=== PATIENT | female | born 1950 | race Caucasian/White ===

== ENCOUNTER 2020-12-08 04:04 | Outpatient (CLI) | payer MEDICARE, SELFPAY ==
[2020-12-08 10:32] LABS: Abs Immature Grans 0.01 10^3/uL (0.0-0.06); Absolute Basophil Count 0.05 10^3/uL (0.0-0.2); Absolute Eosinophil Count 0.23 10^3/uL (0.0-0.7); Absolute Lymphocyte Count 1.95 10^3/uL (1.2-3.4); Absolute Monocyte Count 0.69 10^3/uL (0.1-0.8); Absolute Neutrophil Count 2.41 10^3/uL (1.2-6.7); Basophils % 0.9; Eosinophils % 4.3; HCT 39.5 % (36.0-46.0); HGB 13.2 g/dL (11.2-15.7); Immature Grans % 0.2; Lymphocytes % 36.5; MCH 30.3 pg (27.0-33.0); MCHC 33.4 % (32.0-36.0); MCV 90.8 fL (80-95); Monocytes % 12.9; Neutrophils % 45.2; Nucleated RBC 0 %; Platelet Count 227 10^3/uL (130-400); RBC 4.35 10^6/uL (3.93-5.22); RDW 13.1 % (11.7-14.6); RDW-SD 43.3 fL; WBC 5.34 10^3/uL (4.4-10.8)
[2020-12-09 16:37] LABS: COVID-19 RT-PCR Result NEGATIVE (Negative)
== END 2020-12-08 04:24 ==
PROVIDERS: PCP Family Medicine; Visit Provider Obstetrics & Gynecology
DX: R93.5 Abnormal findings on diagnostic imaging of other abdominal regions, including retroperitoneum (principal); Z11.52 Encounter for screening for COVID-19; Z01.818 Encounter for other preprocedural examination; Z01.812 Encounter for preprocedural laboratory examination
CPT/HCPCS: 36415; 86850; 86900; 86901; U0003; 85025

== ENCOUNTER 2020-12-13 05:53 | Day surgery (SDC) | payer MEDICARE, SELFPAY ==
[2020-12-13 06:10] VITALS: BP 127/63; PULSE 69; RESP 18; TEMP 36.4; O2SAT 98
[2020-12-13] MEDS: Lactated Ringers 1,000 ML 125 ML IV (06:45)
--- NOTE | 2020-12-13 07:46 | ENDO_PTH ---
PATIENT: Samantha Jordan LOC: [facility] U#:[id number] AGE/SX: 70/F ROOM: RE12/13/[address]: Mtia Duggan DO : 1950 BED: DIS: 12/13/2020 SPEC #: [id number] RECD: 12/13/20 12:43 STATUS: GABRIELLA REQ #: [id number] LESA: 12/13/20 07:[address]: Mita Duggan DEPT: Surgical Specimen RECD BY: Chloe Bernard ENTERED: 12/13/20 12:44 SP TYPE: Endo OTHR DR: Corwin Willett Tissues: 1 - ENDOCERVICAL BX/CURRETTE 2 - ENDOMETRIUM BX/CURRETTE Procedures: GROSS AND MICRO LEVEL 4 Comments: [id number]
--- NOTE | 2020-12-13 08:00 | W.PM.OP ---
Date of service: 12/13/20 Time of Service: 08:00 Operative Note Operative Note DATE OF PROCEDURE: 12/13/20 PRE-OP DIAGNOSIS: Abnormal endometrium by ultrasound POST-OP DIAGNOSIS: same PROCEDURE: Hysteroscopy with dilation and curettage SURGEON: Mita Duggan ANESTHESIA: MAC ESTIMATED BLOOD LOSS: 10 PATHOLOGY: other (1. Endocervical curetting 2. Endometrial curetting) COMPLICATIONS: None Patient was transported to: PACU Patient's condition: stable Indications: Abnormal cystic structures on ultrasound of endometrium Findings: Consistent with ultrasound findings. Regular endometrial cavity with thin walled cystic structures throughout the lining of the endometrium Procedure Description: Patient is a 70-year-old female here for hysteroscopy with dilation and curettage. Risk benefits alternatives of procedure have been explained to the patient full informed consent was obtained. She was brought to the operating room with an IV running. She is placed in the supine position and anesthesia administered. She was then placed in the modified dorsal lithotomy position and prepped and draped in the usual sterile fashion. Exam under anesthesia revealed a gaping introitus with uterine prolapse, grade 2 cystocele, grade 2. She does have a moderate amount of vaginal atrophy. At this point speculum was inserted and single-tooth tenaculum used to grasp the anterior lip of the cervix. Cervical os dilated the point that a 5 mm hysteroscope could be passed with ease. With saline installation the endometrial cavity was inspected. Over an atrophic endometrium, was noted thin-walled cystic structures without significant hypervascularity or hyperemia. At this point endocervical curettage was performed followed by endometrial curettage. Once specimens were obtained, procedure was terminated. Hysteroscope had been removed. Tenaculum and speculum were removed. Patient returned to the dorsal supine position and awoke from anesthesia with ease. She was taken recovery in stable condition. Findings are as above. EBL: 10 mL Complications: None apparent Pathology: 1. Endocervical curetting 2. Endometrial curetting.
--- NOTE | 2020-12-13 08:09 | NUR.NOTE ---
Alert and oriented after waking up spontaneously. Taking noé polo PO without incident. Nursing Note:
[2020-12-13 08:40] VITALS: BP 99/62; PULSE 59; RESP 18; TEMP 36.3; O2SAT 99
== END 2020-12-13 09:25 | disposition home or self-care (01) ==
PROVIDERS: PCP Family Medicine; Visit Provider Obstetrics & Gynecology
PROC: 0UDB8ZZ Extraction of Endometrium, Via Natural or Artificial Opening Endoscopic (ICD-10-PCS; CPT 58558; principal; 2020-12-13 07:30)
DX: R93.89 Abnormal findings on diagnostic imaging of other specified body structures (principal); N81.2 Incomplete uterovaginal prolapse; N95.2 Postmenopausal atrophic vaginitis
CPT/HCPCS: 58558; 88305; J1885; J2001; J2704

== ENCOUNTER 2021-02-27 01:18 | Outpatient (CLI) | payer MEDICARE, SELFPAY ==
--- NOTE | 2021-02-27 06:45 | DI.US_ITS ---
EXAM: US PELVIS TRANSVAGINAL CLINICAL HISTORY: Re-check left ovarian cyst,N83.202 TECHNIQUE: Ultrasound performed using standard protocol. COMPARISON: US US PELVIC WITH TRANSVAGINAL US-M2 from 11/09/2020 FINDINGS: Pelvic ultrasound was performed transabdominally and transvaginally uterus measures 7.5 x 2.8 x 4.6 c m in diameter. Endometrial stripe is 2-3 millimeters in thickness and is slightly heterogeneous. No focal mass identified. No free fluid in the cul-de-sac. Right ovary measures 13 x 7 x 8 millimeters and left ovary measures 19 x 9 x 9 millimeters. There are 2 cystic structures which lie adjacent to each other a next to the left ovary, measuring ab out 15 millimeters and 12 millimeters in diameter respectively. No intra lesional internal vasculari ty, wall thickening or nodularity, or internal echogenicity seen. IMPRESSION: Findings consistent with small left ovarian or paraovarian cysts. Probably unchanged from examinatio n at [facility] of October 2020. Follow-up ultrasound recommended in 12 months. Slight heterogeneity of endometrial stripe, nonspecific, please correlate clinically. Abnormal appea rachelle of endometrium was also reported on prior ultrasound from [facility] of November 12. Endometrial biopsy may be considered if clinically appropriate. DATA REPOSITORY:
== END 2021-02-27 01:38 ==
PROVIDERS: PCP Family Medicine; Visit Provider Obstetrics & Gynecology
DX: N83.292 Other ovarian cyst, left side (principal)
CPT/HCPCS: 76830; 76856

== ENCOUNTER 2021-08-28 01:51 | Outpatient (CLI) | payer MEDICARE, SELFPAY ==
--- NOTE | 2021-08-28 06:15 | DI.US_ITS ---
Exam(s) US PELVIS TRANSVAGINAL EXAM: US PELVIS TRANSVAGINAL CLINICAL HISTORY: re-check left ovarian cyst,N83.202. TECHNIQUE: Transabdominal and transvaginal pelvic ultrasound was performed using standard protocol. COMPARISON: US US PELVIC WITH TRANSVAGINAL US-M2 from 11/09/2020 US US PELVIC WITH TRANSVAGINAL US-M2 from 11/09/2020 US US PELVIS TRANSVAGINAL from 02/27/2021 US US PELVIS TRANSVAGINAL from 02/27/2021 FINDINGS: KIDNEYS: Kidneys are symmetric in size. No evidence of renal calculi. No evidence of hydronephrosis. No renal mass or cyst identified. UTERUS: Position: Anteverted. Size: 7.1 long by 2.2 AP by 4.6 transverse cm Endometrium: 0.2 cm. There is again seen a heterogeneous appearance of the endometrium which is uncha nged. Myometrium: Unremarkable. Cervix: Unremarkable. OVARIES: Right: 1.8 x 1.7 x 1.3 cm Cyst or mass: None. Left: 1.2 x 1.3 x 1.0 cm Cyst or mass: The 2 para ovarian cystic lesions are unchanged in size using similar measuring techniq ue. The larger measures 1.5 x 1.0 cm. The smaller measures 1.2 x 1.1 cm. DOPPLER: Color: Symmetric and uniform flow to both ovaries. No hyperemia. Duplex: Normal ovarian arterial waveforms visualized. CUL-DE-SAC: Free fluid: None. Other: None. IMPRESSION: 1. Normal sonographic appearance of the kidneys. 2. Stable heterogeneity of the endometrial stripe in this postmenopausal patient. 3. Stable left paraovarian/ovarian cysts. 4. Six-month follow-up pelvic ultrasound should be considered for re-evaluation. DATA REPOSITORY:
== END 2021-08-28 02:11 ==
PROVIDERS: PCP Family Medicine; Visit Provider Obstetrics & Gynecology
DX: N83.292 Other ovarian cyst, left side (principal)
CPT/HCPCS: 76830; 76856

== ENCOUNTER 2021-08-28 10:06 | Outpatient (REF) | payer MEDICARE, SELFPAY ==
--- NOTE | 2021-08-28 09:20 | PAPFT_PTH ---
PATIENT: Samantha Jordan LOC: [facility] U#:[id number] AGE/SX: 71/F ROOM: RE08/28/[address]: Mita Duggan DO : 1950 BED: DIS: 08/28/2021 SPEC #: [id number] RECD: 08/28/21 12:54 STATUS: GABRIELLA REQ #: [id number] LESA: 08/28/21 09:[address]: Mita Duggan DEPT: [facility] Cytology RECD BY: Chloe Bernard ENTERED: 08/28/21 12:54 SP TYPE: PAPFT OTHR DR: Corwin Willett Tissues: 1 - CX/ENDOCX FOR PAP SMEARS Procedures: PAP THIN PREP/UVM Screening HPV DNA PROBE Comments: [id number]
== END 2021-08-28 10:07 | disposition home or self-care (01) ==
LOC: LBN 10:06
PROVIDERS: PCP Family Medicine; Visit Provider Obstetrics & Gynecology
DX: Z12.4 Encounter for screening for malignant neoplasm of cervix (principal); Z11.51 Encounter for screening for human papillomavirus (HPV); Z01.419 Encounter for gynecological examination (general) (routine) without abnormal findings
CPT/HCPCS: 88142; 87624

== ENCOUNTER 2022-02-25 01:56 | Outpatient (CLI) | payer MEDICARE, SELFPAY ==
--- NOTE | 2022-02-25 06:30 | DI.US_ITS ---
Exam(s) US PELVIS TRANSVAGINAL EXAM: US PELVIS TRANSVAGINAL CLINICAL HISTORY: F/U LT OVARIAN CYST, N83.202 TECHNIQUE: Ultrasound of the pelvis was performed both transabdominal and transvaginal. COMPARISON: US US PELVIS TRANSVAGINAL from 08/28/2021 FINDINGS: UTERUS: Nongravid and anteverted Measures 8 cm length x 0.7 cm AP x 4 cm wide. There are no uterine fibroids. Endometrial thickness measures 3.3 mm. Endometrium is again noted be heterogeneous but unchanged. Contains a few small cystic areas, unchan ged. CERVIX: There are no obvious nabothian cysts. RIGHT OVARY: Measures 1.6 x 1.6 x 1.1 cm No significant cysts nor masses evident in the right ovary. LEFT OVARY: Measures 1.5 x 1.6 x 1.0 cm Again noted to contain some cysts from the largest measuring 10 x 9 x 10 millimeters and exophytic. This appears unchanged from previous. CUL-DE-SAC: No free fluid evident. IMPRESSION: 1. Stable appearance of the uterus and adnexal findings without significant change compared to 2020. 2. No free fluid. 3. Recommend repeat transvaginal ultrasound in 6 months for re-evaluation. DATA REPOSITORY:
== END 2022-02-25 02:16 ==
PROVIDERS: PCP Family Medicine; Visit Provider Obstetrics & Gynecology
DX: N83.202 Unspecified ovarian cyst, left side (principal)
CPT/HCPCS: 76830; 76856

== ENCOUNTER → 2022-08-27 01:16 | Outpatient (CLI) | payer MEDICARE, SELFPAY ==
--- NOTE | 2022-08-27 06:45 | DI.US_ITS ---
Exam(s) US PELVIS TRANSVAGINAL EXAM: US PELVIS TRANSVAGINAL CLINICAL HISTORY: Recheck ovarian cyst for stability,lt, n83.202 TECHNIQUE: Ultrasound of the pelvis was performed both transabdominal and transvaginal. COMPARISON: US US PELVIS TRANSVAGINAL from 02/25/2022 FINDINGS: UTERUS: Nongravid and anteverted, Measures 6.4 cm length x 2.0 cm AP x 4.0 cm wide. There are no uterine fibroids. Endometrial thickness measures 2 mm. Small focal areas of discontinuous fluid noted in the endometrial cavity. This is similar to the katalina or study of 02/25/2022. CERVIX: There are no obvious nabothian cysts. RIGHT OVARY: Measures 2 x 1.2 x 1.4 cm No significant cysts nor masses evident in the right ovary. LEFT OVARY: Measures 2.2 x 0.8 x 1.0 cm No significant cysts nor masses evident in the left ovary. There are few prominent vessels adjacent to the left ovary, possibly related to an element of pelvic congestion syndrome. CUL-DE-SAC: No free fluid evident. IMPRESSION: 1. There are multiple small discontinuous foci fluid within the endometrial cavity. This is similar to the previous ultrasound examination of February 2020 2. No abnormal ovarian findings. 3. Slightly prominent left adnexal vessels, possibly related to an element of pelvic congestion syndr ome No free fluid. DATA REPOSITORY:
== END ==
PROVIDERS: PCP Family Medicine; Visit Provider Obstetrics & Gynecology
DX: N83.202 Unspecified ovarian cyst, left side (principal)
CPT/HCPCS: 76830; 76856

== ENCOUNTER 2023-02-26 09:29 | Outpatient (CLI) | payer MEDICARE, SELFPAY ==
--- NOTE | 2023-02-26 06:00 | DI.RAD_ITS ---
Exam(s) XR PAIN CLINIC SACRIOILIAC 2V EXAM: XR PAIN CLINIC SACRIOILIAC 2V CLINICAL HISTORY: Dx: Sacroiliac Joint Dysfunction. TECHNIQUE: Fluoroscopy was provided for the referring physician for guidance with performing pain cl inic injection procedure. COMPARISON: No exams were available for comparison FINDINGS: Please see procedure note for details. Fluoro time: 23 seconds RADIATION DOSE DELIVERED: Ka,r=4.39 mGy
[2023-02-26 09:44] VITALS: BP 115/64; PULSE 66; RESP 20; TEMP 36.7; O2SAT 96
[2023-02-26] MEDS: methylPREDNISolone ACETATE 80 MG/ML VIAL IJ (10:26)
[2023-02-26] MEDS: Omnipaque 240 MG/ML 50 ML BTL IJ (10:26)
[2023-02-26 10:28] VITALS: BP 136/78; PULSE 77; RESP 16; O2SAT 100
--- NOTE | 2023-02-26 10:31 | PDOC.PAIN_ITS ---
Date of service: 02/26/23 Time of Service: 10:37 Pain Clinic Procedure Note Procedure Note Procedure Note: INTRA-ARTICULAR SI JOINT INJECTION Samantha Jordan has been referred to the [facility] for intra- articular SI joint injection. COMMENTS: I evaluated her in the clinic on 02/20/23. Her symptoms have not changed. Dx: Sacroiliac joint dysfunction Pre-procedure pain VAS = 2/10 Patient was interviewed and the medical record reviewed. There were no medical, pharmacologic, radiographic or other structural contraindications to attempting fluoroscopically guided intra-articular SI joint injection. Risks and expected side effects as well as potential benefit of the procedure were reviewed and voiced concerns addressed. The printed consent form was signed and witnessed. Standard time-out procedure was performed. Patient was placed in the prone position on the fluoroscopy table and automated blood pressure cuff and pulse oximeter applied. The skin entry point for approaching the bilateral SI joints was identified under the most advantageous fluoroscopic view and marked. Following thorough Chlorhexadine preparation of the skin and draping and 1% lidocaine infiltration of the skin entry point and subcutaneous tissues, a 22 gauge 3.5 spinal needle was placed under fluoroscopic guidance into the bilateral SI joints was identified under the most advantageous fluoroscopic view and marked. Intra-articular placement was confirmed by a clear arthrogram resulting from the injection of 0.25ml Omnipaque 240. Next 1/2 cc of Depomedrol (80 mg/cc) was injected intra-articularily into each joint and this was followed by 1 cc of 1% Lidocaine with an initial reproduction of a significant component of the usual pain. Vital signs were stable throughout the procedure and were as recorded in the docflowsheet by the nursing staff. If given, dosages of intravenous drugs for anxiolysis and analgesia were documented in MAR. Follow up plans and appointments were discussed with the patient. Post procedure instruction was given as documented in nursing documentation and having met discharge criteria, and was discharged from the [facility]. COMMENTS: Post-procedure pain VAS was 2/10. If this procedure gives her at least 3 months of 50% pain relief and/or 50% functional improvement, it can be completed up to 4 times per 12 months. Corwin Villegas DO, MPH [facility]-Pain Management [facility] for [facility] CC: Corwin Willett
== END 2023-02-26 09:30 | disposition home or self-care (01) ==
LOC: PC 09:30
PROVIDERS: PCP Family Medicine; Visit Provider Preventive Medicine Occupational Medicine
DX: M46.1 Sacroiliitis, not elsewhere classified (principal); M54.50 Low back pain, unspecified
CPT/HCPCS: 27096; 72200; J1040; Q9967

== ENCOUNTER → 2024-09-16 10:00 | Outpatient (BNVA) | payer MEDICARE, SELFPAY | PROVIDERS: PCP Family Medicine; Referring Provider Family Medicine; Visit Provider Physician Assistant Surgical | DX: R06.09 Other forms of dyspnea (principal); J30.9 Allergic rhinitis, unspecified; R06.2 Wheezing | CPT/HCPCS: 36415; 99205 ==

== ENCOUNTER 2024-09-16 11:32 | Outpatient (REF) | payer MEDICARE, SELFPAY ==
[2024-09-16 15:42] LABS: Abs Immature Grans 0.02 10^3/uL (0.0-0.06); Absolute Basophil Count 0.03 10^3/uL (0.0-0.2); Absolute Eosinophil Count 0.17 10^3/uL (0.0-0.7); Absolute Lymphocyte Count 1.95 10^3/uL (1.2-3.4); Absolute Monocyte Count 0.66 10^3/uL (0.1-0.8); Absolute Neutrophil Count 3.21 10^3/uL (1.2-6.7); Basophils % 0.5 %; Eosinophils % 2.8 %; HCT 41.4 % (36.0-46.0); HGB 13.5 g/dL (11.2-15.7); Immature Grans % 0.3 %; Lymphocytes % 32.3 %; MCH 30.9 pg (27.0-33.0); MCHC 32.6 % (32.0-36.0); MCV 95 fL (80-95); MPV 10.8 fL (8.0-11.0); Monocytes % 10.9 %; Neutrophils % 53.2 %; Platelet Count 235 10^3/uL (130-400); RBC 4.37 10^6/uL (3.93-5.22); RDW-SD 45.6 fL; WBC 6.04 10^3/uL (4.4-10.8)
[2024-09-17 12:04] LABS: IgE 181 IU/mL (<158)
== END 2024-09-16 11:33 | disposition home or self-care (01) ==
LOC: LBN 11:32
PROVIDERS: PCP Family Medicine; Visit Provider Physician Assistant Surgical
DX: R06.09 Other forms of dyspnea (principal)
CPT/HCPCS: 82785; 85025

== ENCOUNTER 2024-09-20 02:29 | Outpatient (CLI) | payer MEDICARE, SELFPAY ==
[2024-09-20] MEDS: Inhaler, Assist Device 1 EACH MC (12:07)
[2024-09-20] MEDS: Methacholine 100 MG VIAL IH (12:07)
[2024-09-20] MEDS: Albuterol HFA 18 GM 200 PUFF INH IH (12:08)
--- NOTE | 2024-09-20 16:48 | W.PFT ---
Date of service: 09/20/24 Time of Service: 10:19 Pulmonary Function Test Result Indications: Dyspnea Interpretation Spirometry: There is no baseline airflow limitation. There was an 11% decreased with administration of 16mg/mL methacholine. Lung Volumes: Normal lung volumes Diffusion Capacity: Normal diffusion Airway Pressure: Normal airways resistance Impression Normal pulmonary function testing and a negative methacholine challenge. Clinical Correlation therefore is recommended.
== END 2024-09-20 02:30 | disposition home or self-care (01) ==
LOC: RT 02:29
PROVIDERS: PCP Family Medicine; Visit Provider Student in an Organized Health Care Education/Training Program
DX: R06.00 Dyspnea, unspecified (principal)
CPT/HCPCS: 94060; 94070; 94726; 94729; 94010; J7674

== ENCOUNTER 2024-09-30 02:40 | Outpatient (CLI) | payer MEDICARE, SELFPAY ==
--- NOTE | 2024-09-30 | DI.US_ITS ---
APPROVED REPORT EXAM: Comprehensive 2D, Doppler, and color-flow Echocardiogram Patient Location: In-Patient [employer] Guide: Alyssa Carias RDCS (AE) Indications: ORELLANA, other general symptoms and signs, fatigue Other Information Study Quality: Fair. Technically limited study due to body habitus, technically limited apical imagin g. Conclusion Normal left ventricular wall thickness and chamber size. Ejection fraction is 59%. Wall motion is n ormal Normal right ventricular size and function Both atria are normal in size There is no structural or hemodynamically significant valvular disease Minimally dilated aortic root and ascending aorta Wall motion Left Ventricle The left ventricle is normal size. The left ventricular systolic function is normal. The left ventric ular ejection fraction is within the normal range. Technically limited apical imaging window. There i s normal left ventricular wall thickness. There is normal LV segmental wall motion. There is no ventr icular septal defect visualized. LVEF is 59%. Right Ventricle Right ventricle is grossly normal in size. Right ventricular systolic function is grossly normal. Atria The left atrium size is normal. The right atrium size is normal. The interatrial septum is intact wit h no evidence for an atrial septal defect. Aortic Valve The aortic valve is normal in structure. Aortic valve is trileaflet. There is no aortic valvular sten osis. No aortic regurgitation is present. Mitral Valve The mitral valve is normal in structure. No evidence of mitral valve stenosis. Trace mitral regurgita tion. Tricuspid Valve The tricuspid valve is normal in structure. There is no tricuspid valve stenosis. Trace tricuspid reg urgitation. Unable to assess PA pressure. Pulmonic Valve The pulmonary valve is normal in structure. There is no pulmonic valvular stenosis. Trace pulmonic re gurgitation. Great Vessels Aortic root is mildly dilated. The ascending aorta is mildly dilated. Aortic arch is normal in calib er. IVC is normal in size and collapses >50% with inspiration. Pericardium There is no pericardial effusion. 2D Dimensions IVSD d PLAX 0.80 cm F: 0.6-1.0 Ao Root d 3.40 cm F: 2.7 - 3.3 LVPW d PLAX 0.80 cm F: 0.6 - 1.0 Ao Asc Diam d 3.39 cm F: 2.3 - 3.1 LVID d PLAX 4.00 cm F: 3.8 - 5.2 LVDs 2.80 cm F: 2.2 - 3.5 LV EF Teichholz 58.5 % FS 30.48 % LV EDV (Teich) 69.3 mL LV ESV (Teich) 28.7 mL M-Mode TAPSE 2.39 cm (M/F) >1.7 LV Diastology MV E' medial 0.098 (>0.07 m/s) MV E Vmax 0.60 (0.4-1.3 m/s) MV E/E' MED 6.19 (<14) MV A Vmax 0.55 (0.4-1.3 m/s) MV E' lateral 0.087 (>0.1 m/s) E/A Ratio 1.1 MV E/E' LAT 6.95 (<14) MV E' Average 0.092 m/s MV E/E'(average) 6.55 Aortic Valve AoV Vmax 0.93 m/s LVOT Vmax 0.64 m/s AoV Peak Grad 3.5 mmHg LVOT Peak Grad 1.7 mmHg AoV Area (Vmax) 2.37 cm2 LVOT VTI 0.163 m AoV VTI 0.245 m LVOT Mean Grad 1.0 mmHg AoV Mean Sandoval. 0.72 m/s LVOT SV 56.02 mL AoV Mean Grad 2.2 mmHg LVOT Diam s 2.05 cm AoV Area (VTI) 2.28 cm2 AV Regurg Peak Gr. 3.49 mmHg Velocity Ratio 0.69 Mitral Valve MV DT 295 (160-240 msec) MV Vmax TIPS 0.70 m/s MV Mean Grad 0.8 (<2mmHg) MV VTI 0.212 m Pulmonary Valve PV Vmax 0.53 (0.5-1.5 m/s) RVOT Vmax 0.46 m/s PV Peak Grad 1.1 mmHg RVOT Peak Gr. 0.9 mmHg PV Mean Sandoval 0.42 m/s RVOT VTI 0.120 m PV Mean Grad 0.8 mmHg RVOT Mean Gr. 0.5 mmHg Tricuspid Valve RA Pressure 3.00 mmHg TV S' 0.14 m/s
== END 2024-09-30 03:00 ==
LOC: DI 02:40
PROVIDERS: PCP Family Medicine; Visit Provider Specialist/Technologist Athletic Trainer
DX: R68.89 Other general symptoms and signs (principal); R06.00 Dyspnea, unspecified
CPT/HCPCS: 93306

== ENCOUNTER → 2024-10-20 10:41 | Outpatient (BNVA) | payer MEDICARE, SELFPAY | PROVIDERS: PCP Family Medicine; Referring Provider Family Medicine; Visit Provider Physician Assistant Surgical | DX: J30.9 Allergic rhinitis, unspecified (principal); R06.2 Wheezing | CPT/HCPCS: 99214 ==

== ENCOUNTER 2024-10-20 13:00 | Outpatient (CLI) | payer MEDICARE, SELFPAY ==
[2024-10-20 12:45] LABS: TSH (W/Ref FT4) 1.03 uIU/mL (0.36-3.74); Vitamin D 25 Total 37.8 ng/mL (30-100)
[2024-10-22 08:29] LABS: IgG 979 mg/dL (610-1616)
[2024-10-22 18:28] LABS: Aspergillus Fumigatus IgE <0.10 kU/L (<0.70); Aspergillus Niger, IgE <0.10 kU/L (<0.70); Baker's Yeast, IgE <0.10 kU/L (<0.70); Barley, IgE <0.10 kU/L (<0.70); Bermuda Grass IgE <0.10 kU/L (<0.70); Canary Feathers IgE <0.10 kU/L (<0.70); Candida Albicans (Monilia),IgE 0.11 kU/L (<0.70); Cat Epithelium IgE <0.10 kU/L (<0.70); Cedar, IgE <0.10 kU/L (<0.70); Chicken Feathers IgE <0.10 kU/L (<0.70); Cockroach IgE 1.51 kU/L (<0.70); D Farinae IgE 17.9 kU/L (<0.70); D Pteronyssinus IgE 12.3 kU/L (<0.70); Dog Dander IgE <0.10 kU/L (<0.70); Eastern Sycamore IgE <0.10 kU/L (<0.70); Epicoccum purpurascens IgE <0.10 kU/L (<0.70); False Ragweed, IgE <0.10 kU/L (<0.70); Giant Ragweed IgE <0.10 kU/L (<0.70); Goldenrod IgE <0.10 kU/L (<0.70); Milk, IgE <0.10 kU/L (<0.70); Penicillium chrysogenum IgE <0.10 kU/L (<0.70); Short Ragweed IgE <0.10 kU/L (<0.70); Silver Birch IgE <0.10 kU/L (<0.70)
[2024-10-22 19:23] LABS: Cheese, Mold IgE <0.10 kU/L (<0.70); Mouse Serum Protein IgE <0.10 kU/L (<0.70)
[2024-10-22 19:26] LABS: Botrytis Cinerea IgE <0.10 kU/L (<0.70)
[2024-10-26 12:11] LABS: CLASS 0; Cedar Red IgE <0.10 kU/L (<0.35)
== END 2024-10-20 13:01 | disposition home or self-care (01) ==
LOC: LBO 13:06
PROVIDERS: PCP Family Medicine; Visit Provider Physician Assistant Surgical
DX: R53.83 Other fatigue (principal); T78.40XA Allergy, unspecified, initial encounter; J18.9 Pneumonia, unspecified organism; E55.9 Vitamin D deficiency, unspecified
CPT/HCPCS: 36415; 82306; 82784; 86003; 99214; 82787; 84443

== ENCOUNTER → 2024-12-21 09:56 | Outpatient (BNVA) | payer MEDICARE, SELFPAY | PROVIDERS: PCP Family Medicine; Referring Provider Family Medicine; Visit Provider Physician Assistant Surgical | DX: R06.2 Wheezing (principal); J30.9 Allergic rhinitis, unspecified | CPT/HCPCS: 99214 ==

== ENCOUNTER 2024-12-21 14:09 | Outpatient (CLI) | payer MEDICARE, SELFPAY ==
--- NOTE | 2024-12-21 11:15 | DI.RAD_ITS ---
Exam(s) XR CHEST 2V PA LATERAL EXAM: XR CHEST 2V PA LATERAL CLINICAL HISTORY: follow wheezing R06.2 TECHNIQUE: 2D digital imaging was performed of the chest. Two images were obtained. PA and lateral views were obtained. COMPARISON: CR XR CHEST 2VW (D) from 03/22/2024 FINDINGS: MEDIASTINUM: Normal. HEART: Normal. PULMONARY VASCULATURE: Normal. LUNGS: Clear. PLEURAL SPACE: No pleural effusion or pneumothorax. BONE:Within normal limits for the patient's age. OTHER FINDINGS:Normal. IMPRESSION: No acute pulmonary findings. DATA REPOSITORY: RADIATION DOSE DELIVERED:
== END 2024-12-21 14:29 ==
PROVIDERS: PCP Family Medicine; Visit Provider Physician Assistant Surgical
DX: R06.2 Wheezing (principal); R76.8 Other specified abnormal immunological findings in serum
CPT/HCPCS: 99214; 71046

== ENCOUNTER 2024-12-30 00:49 | Outpatient (CLI) | payer MEDICARE, SELFPAY ==
--- NOTE | 2024-12-30 06:15 | DI.NM_ITS ---
APPROVED REPORT Exam: Pharmacologic Patient Location: Out-Patient Room/Bed: Stress Nurse: Nida Duggan RN Ordering Provider:MERA RIZO, Contact Number: [phone] BMI: 24.78 Baseline Rhythm: Sinus Rhythm Comment: Rare PAC, occasional PVC Indications: Heart palpitations, heart failure, Medical History Medical History: Fibromyalgia, pneumonia, insomnia, asthma Cardiac Medications: Albuterol sulfate, epi pen, estradiol, gabapentin, glucosamine, meclizine, guafe nisin, trazodone Allergies: Percocet, sulfa, shellfish, ketoconazole, neomycin, quinine, honey papa, animal dander, mo ld, crab Cardiac Risk Factors: Family hx, asthma Previous Cardiac Procedures: None Pretest Chest Pain Characteristics: None Exercise History: Sedentary Physical Disabilities: ORELLANA w/exertion Lung Sounds: Clear to auscultation Heart Sounds: Regular Stress Test Details Test: Pharmacologic stress was paired with low level exercise. Reason for pharmacologic stress test: ORELLANA w/ exertion. Nuclear Acquisition: Rest Tc-99m/Stress Tc-99m 1 day Rest Isotope: Tc-99m Sestamibi. Dose: 9.9 Date: 12/30/2024 Injection Time: 1100 Stress Isotope: Tc-99m Sestamibi. Dose: 30.1 Date: 12/30/2024 Injection Time: 1235 HR Resting HR Supine: 72 bpm Max Heart Rate (APMHR): 146 bpm Resting HR Standin bpm Target HR (85% APMHR): 124 bpm Max HR Achieved: 120 bpm % of APMHR: 82 Recovery HR: 85 bpm BP Resting BP Supine: 122/78 mmHg Resting BP Standin/70 mmHg Max BP: 152/72 mmHg Recovery BP: 140/64 mmHg ECG Resting ECG: Sinus Rhythm Ectopy: Rare PAC, occasional PVC's Stress ECG: Sinus Bradycardia ST Change: Nondiagnostic low heart rate Arrhythmia: Occasional PVC's Recovery ECG: Sinus Rhythm Recovery ST Change: Nondiagnostic low heart rate Recovery Arrhythmia: Occasional PVC's, rare PAC Clinical Stress Symptoms: Mild SOB Angina Score: None Rate Pressure Product: [id number] Stress ECG Conclusion 1. Resting electrocardiogram was normal 2. Patient underwent testing using a combination of low-level exercise and pharmacologic stress with regadenoson 3. Peak heart rate achieved was 82% of maximal predicted heart rate for age 4. The electrocardiographic portion of the test was nondiagnostic 5. There were no significant dysrhythmias 6. See MPI report Stress Test Summary STAGE HR BP SpO2 Symptoms NOTES Supine 72 122/78 97% Standing 81 130/70 1 min post Lexiscan injection 109 144/70 97% Mild SOB 3 min post Lexiscan injection 95 152/72 98% 6 min post Lexiscan injection 85 140/64 SOB resolved MPI Conclusion Myocardial perfusion is normal. There is no ischemia or evidence of prior infarction Calculated EF is 70%. Wall motion is normal
[2024-12-30] MEDS: Regadenoson 0.4 MG/5 ML SYR IVP (13:04)
== END 2024-12-30 01:09 ==
PROVIDERS: PCP Specialist/Technologist Athletic Trainer; Visit Provider Internal Medicine Cardiovascular Disease
DX: I50.9 Heart failure, unspecified (principal)
CPT/HCPCS: 78452; 93016; 93018; 93017; J2785

== ENCOUNTER 2025-01-14 15:44 | Outpatient (CLI) | payer MEDICARE, SELFPAY ==
[2025-01-18 12:13] LABS: Alternaria Tenuis IgE <0.10 kU/L (<0.70); Cocklebur IgE <0.10 kU/L (<0.70); Cottonwood IgE <0.10 kU/L (<0.70); Elm IgE <0.10 kU/L (<0.70); Fusarium moniliforme, IgE <0.10 kU/L (<0.70); Lamb's Quarter IgE <0.10 kU/L (<0.70); Oak IgE <0.10 kU/L (<0.70); Red Sorrel IgE <0.10 kU/L (<0.70); Rough Pigweed IgE <0.10 kU/L (<0.70); Stemphyllium IgE <0.10 kU/L (<0.70); Timothy Grass IgE 0.47 kU/L (<0.70); Walnut Tree IgE <0.10 kU/L (<0.70); Wormwood IgE <0.10 kU/L (<0.70)
[2025-01-20 17:26] LABS: CLASS 0; Rhodotorula IgE <0.35 kU/L (<0.35)
== END 2025-01-14 15:45 | disposition home or self-care (01) ==
LOC: LBO 15:47
PROVIDERS: PCP Specialist/Technologist Athletic Trainer; Visit Provider Otolaryngology Otolaryngology/Facial Plastic Surgery
DX: T78.40XA Allergy, unspecified, initial encounter (principal)
CPT/HCPCS: 36415; 86003

== ENCOUNTER → 2025-03-28 07:29 | Outpatient (BNVA) | payer MEDICARE, SELFPAY | PROVIDERS: PCP Specialist/Technologist Athletic Trainer; Referring Provider Family Medicine; Visit Provider Physician Assistant Surgical | DX: J30.9 Allergic rhinitis, unspecified (principal); R06.2 Wheezing | CPT/HCPCS: 99214 ==

== ENCOUNTER → 2025-06-02 08:44 | Outpatient (BNVA) | payer MEDICARE, SELFPAY | PROVIDERS: PCP Specialist/Technologist Athletic Trainer; Referring Provider Specialist/Technologist Athletic Trainer; Visit Provider Internal Medicine Pulmonary Disease | DX: R06.00 Dyspnea, unspecified (principal); J30.9 Allergic rhinitis, unspecified; R06.83 Snoring | CPT/HCPCS: 99214 ==